=== PATIENT | female | born 1980 | race Caucasian/White ===

== ENCOUNTER 2022-12-11 12:24 | Emergency (ER) | payer OTHER, SELFPAY ==
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
--- NOTE | ~2022-12-11 | XR_ITS ---
EXAMINATION: XR HIP, LEFT CLINICAL INFORMATION: Fall. Pain. COMPARISON: None TECHNIQUE: AP view of the pelvis as well as AP and frog-leg lateral views of the left hip. FINDINGS: No displaced fracture. No dislocation. Mild left hip joint space narrowing with marginal osteophytes. No osseous erosion. No abnormal soft tissue calcification. XR/XR hip LT w PEL1V IMPRESSION: No acute fracture or dislocation. [id number] left hip osteoarthritis.
[2022-12-11 12:42] VITALS: BP 154/88; PULSE 106; RESP 18; TEMP 36.4; O2SAT 99; BMI 38.9
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
[2022-12-11] MEDS: Lidocaine HCl 1 % MPF 5 ML VIAL 10 ML SUBCUT (12:56)
== END 2022-12-11 15:53 | disposition home or self-care (01) ==
PROVIDERS: Emergency Provider Student in an Organized Health Care Education/Training Program; PCP Internal Medicine
DX: S01.81XA Laceration without foreign body of other part of head, initial encounter (principal); S01.511A Laceration without foreign body of lip, initial encounter; V27.09XA Other motorcycle driver injured in collision with fixed or stationary object in nontraffic accident, initial encounter; Y93.89 Activity, other specified; Y92.414 Local residential or business street as the place of occurrence of the external cause; Y99.9 Unspecified external cause status; M25.552 Pain in left hip
CPT/HCPCS: 12011; 12051; 70450; 70486; 72125; 73502; 99282; 99284